=== PATIENT | male | born 1960 | race Caucasian/White ===

== ENCOUNTER 2022-03-02 01:11 | Outpatient (CLI) | payer SELFPAY | END 2022-03-02 01:12 | disposition home or self-care (01) | PROVIDERS: Visit Provider Internal Medicine | DX: I46.9 Cardiac arrest, cause unspecified (principal) | CPT/HCPCS: A0425; A0433 ==

== ENCOUNTER 2022-03-02 01:50 | Emergency (ER) | payer SELFPAY ==
[2022-03-02 01:50] VITALS: TEMP 36.1; BMI 25.1
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
== END 2022-03-02 04:01 | disposition expired ==
PROVIDERS: Emergency Provider Internal Medicine
CPT/HCPCS: 94761; 99283; 99284; 99291